=== PATIENT | female | born 1940 | race Caucasian/White ===

== ENCOUNTER → 2016-09-07 | Outpatient (CLI) | payer MEDICARE ==
[2016-09-07 10:26] LABS: ALBUMIN 4.2 g/dL (3.4-5.0); ANION GAP 16.8 MEQ/L (3-15); CALCULATED IONIZED CALCIUM 4.7 mg/dL (3.8-4.6); TOTAL PROTEIN 7.3 g/dL (6.4-8.5)
== END ==
LOC: LAB 09:49
PROVIDERS: ATTEND Family Medicine
DX: E11.22 Type 2 diabetes mellitus with diabetic chronic kidney disease (principal)
CPT/HCPCS: 36415; 80053; 83036

== ENCOUNTER → 2016-11-06 | Outpatient (CLI) | payer MEDICARE ==
[~2016-11-06] MED LIST: ALLO100T PO; ASP81CT PO; ATN50T PO; CALC667C PO; CALC667C10 PO; CEFD300C PO; CLPD75T PO; FURO20TA4 PO; INSASP1U SQ; INSU100I30 SQ; INSU100V2 SC; INSU100V5 SC; LEVEMIR (P10 UNIT/0. SC; NF-LISIN40 PO; NTR.4SL SL; PAMI30VI8 SQ; PARI1CAP PO; PARI1CAP3 PO; SMV20T PO; SODI325T PO
[2016-11-06 09:21] LABS: BASOPHILS % (AUTO) 0 % (0-2); EOSINOPHILS # (AUTO) 0.1 10^3uL; EOSINOPHILS % (AUTO) 1 % (0-4); LYMPHOCYTES # (AUTO) 2.7 X10^3; MEAN CORPUSCULAR HEMOGLOBIN 30.7 PG (26.0-34.0); MEAN CORPUSCULAR HGB CONC 32.3 g/dL (31.0-37.0); MEAN CORPUSCULAR VOLUME 95 FL (80-100); MEAN PLATELET VOLUME 10.6 FL (6.0-9.5); MONOCYTES # (AUTO) 0.8 X10^3; MONOCYTES % (AUTO) 8 % (3-11); NEUTROPHILS # (AUTO) 6.2 X10^3; NEUTROPHILS % (AUTO) 63 % (51-67); PLATELET COUNT 205 10^3uL (150-450); WHITE BLOOD COUNT 9.79 10^3uL (4.0-11.0)
[2016-11-06 09:44] LABS: ALBUMIN 4.2 g/dL (3.4-5.0); PHOSPHORUS 4.5 mg/dL (2.4-4.9)
== END ==
LOC: LAB 09:10
PROVIDERS: ATTEND Internal Medicine Nephrology
DX: I12.0 Hypertensive chronic kidney disease with stage 5 chronic kidney disease or end stage renal disease (principal); N18.5 Chronic kidney disease, stage 5; Z87.442 Personal history of urinary calculi; E87.5 Hyperkalemia
CPT/HCPCS: 36415; 80069; 85025

== ENCOUNTER → 2016-12-08 | Outpatient (REF) | payer MEDICARE ==
[2016-12-08 13:00] LABS: ALBUMIN 3.8 g/dL (3.4-5.0); ANION GAP 18.6 MEQ/L (3-15); CALCULATED IONIZED CALCIUM 4.8 mg/dL (3.8-4.6); TOTAL PROTEIN 6.7 g/dL (6.4-8.5)
== END ==
LOC: LAB 12:34
PROVIDERS: ATTEND Family Medicine
DX: I10 Essential (primary) hypertension (principal); E11.22 Type 2 diabetes mellitus with diabetic chronic kidney disease; I25.10 Atherosclerotic heart disease of native coronary artery without angina pectoris
CPT/HCPCS: 80053; 80061; 83036